=== PATIENT | male | born 1960 | race Caucasian/White ===

== ENCOUNTER 2016-05-07 13:35 | Emergency (ER) | payer BC ==
[~2016-05-07] VITALS: Ht 188 cm; Wt 87.5 kg
[~2016-05-07 13:35] MED LIST: ALPRAZOLAM0.5 MG PO; BACTRIM,SEPT1 TABLET PO; BACTROBAN OINTM22 GM TP; DILAUDID2 MG PO; GABAPENTIN300 MG PO; KEFLEX500 MG PO; LANTUS 3 M100 UNITS1 SC; LEVAQUIN500 MG PO; LIPITOR10 MG PO; METFORMIN HCL1000 MG PO; METOPROLOL SUCC50 MG PO; MOTRIN800 MG PO; NAPROSYN500 MG PO; NOHOMEMEDS; NORCO 10/3251 TABLET PO; PERCOCET 5/31 TABLET PO; TOUJEO SOL300 UNIT/1 SC
[2016-05-07 14:07] LABS: POINT-OF-CARE METER ID UU13113778
[2016-05-07 17:08] LABS: HEMATOCRIT 49.4 % (38.0-50.0); MCH 31.2 PG (29.0-34.0); MCHC 34.8 G/DL (30.0-36.0); MCV 89.5 FL (86-99); MEAN PLAT.VOLUME 9.9 uM^3 (9.0-12.4); PLATELET COUNT 244 K/uL (156-360); RBC DIS.WIDTH-SD 42.8 % (39-53); RED BLOOD COUNT 5.52 M/uL (4.00-5.50)
[2016-05-07 17:16] LABS: CHLORIDE 105 mEq/L (99-109); SODIUM 142 mEq/L (136-147)
[2016-05-07 17:18] LABS: GLUCOSE 106 mg/dL (70-99)
[2016-05-07 17:20] LABS: ANION GAP 11 MEQ/L (2-14); TOTAL BILIRUBIN 0.9 mg/dL (0.0-1.0)
[2016-05-07 17:22] LABS: ALKALINE PHOSPHATASE 60 IU/L (3-129); GFR ESTIMATE (CALCULATED) > 59 mL/min/
[2016-05-07 17:23] LABS: UREA NITROGEN (BUN) 13 mg/dL (9-23)
[2016-05-07] MEDS ORDERED: ZOFRAN ODT4 MG PO (18:48)
[2016-05-07 18:56] VITALS: BP 188/108
== END 2016-05-07 18:58 | disposition home or self-care (01) ==
LOC: EME 13:35
PROVIDERS: Physician Assistant
DX: E11.65 Type 2 diabetes mellitus with hyperglycemia (principal); R19.7 Diarrhea, unspecified; R11.2 Nausea with vomiting, unspecified; M79.1 Myalgia; F17.200 Nicotine dependence, unspecified, uncomplicated; I10 Essential (primary) hypertension; Z79.4 Long term (current) use of insulin
CPT/HCPCS: 80053; 81003; 82948; 83605; 85027; 87040; 99281; 99284